=== PATIENT | female | born 1970 | race Caucasian/White ===

== ENCOUNTER 2020-01-12 11:24 | Emergency (ER) | payer OTHER ==
[~2020-01-12] VITALS: Ht 165.1 cm; Wt 67.3 kg
[2020-01-12 11:31] VITALS: Ht 165.1 cm; Wt 67.3 kg
[2020-01-12] MEDS ORDERED: ESTRACE 0.5 MG0.5 MG PO (11:32)
[2020-01-12] MEDS ORDERED: PROZAC10 MG PO (11:33)
[2020-01-12] MEDS ORDERED: NEXIUM20 MG PO (11:34)
[2020-01-12 11:54] LABS: BILIRUBIN NEGATIVE (NEGATIVE); GLUCOSE NEGATIVE (NEGATIVE); KETONE NEGATIVE (NEGATIVE); NITRITE NEGATIVE (NEGATIVE); SPECIFIC GRAVITY 1.005 (1.005-1.020); UROBILINOGEN NORMAL (NORMAL)
[2020-01-12 11:59] LABS: HEMOGLOBIN 13.7 g/dL (12-16); MCH 29.8 pg (26.0-34.0); MCHC 33.4 g/dL (31.0-37.0); MCV 89.1 fL (80.0-100.0); MEAN PLATELET VOLUME 10.9 fL (7.4-10.4); NEUTROPHILS 59.5 % (40-80); PLATELET COUNT 203 10x3/uL (130-400); RDW 13.6 % (11.5-14.5); WBC 7.1 10x3/uL (4.8-10.8)
[2020-01-12 12:21] LABS: CALC OSMOLALITY 276 mosm/kg (275-300); CALCIUM 8.7 mg/dL (8.5-10.1); CARBON DIOXIDE 23.6 mmol/L (21.0-32.0); CHLORIDE - SERUM 105 mmol/L (98-107); CREATININE - SERUM 0.9 mg/dL (0.6-1.3); GLUCOSE 97 mg/dL (74-106); POTASSIUM - SERUM 3.9 mmol/L (3.5-5.1); SODIUM 139 mmol/L (136-145); UREA NITROGEN 9 mg/dL (7-18); eGFR NON AFRICAN AMERICAN 71 mL/min (90-120)
[2020-01-12 12:29] LABS: ALBUMIN 3.9 g/dL (3.4-5.0); ALKALINE PHOSPHATASE 74 U/L (30-120); ALT (SGPT) 22 U/L (10-68); BILIRUBIN - TOTAL 0.52 mg/dL (0.2-1.3); LIPASE 140 U/L (73-393); PROTEIN - SERUM 7.2 g/dL (6.4-8.2); TROPONIN-I < 0.017 ng/mL (0.000-0.060)
[2020-01-12] MEDS ORDERED: ZOFRAN ODT4 MG/UDTAB PO (14:40)
[2020-01-12] MEDS ORDERED: REGLAN10 MG PO (14:40)
[2020-01-12] MEDS ORDERED: PEPCID40 MG PO (14:40)
[2020-01-12 14:58] VITALS: BP 127/64
== END 2020-01-12 15:00 | disposition home or self-care (01) ==
LOC: D.ER 11:24
PROVIDERS: Emergency Medicine
DX: R10.13 Epigastric pain (principal); R11.2 Nausea with vomiting, unspecified